=== PATIENT | male | born 1965 | race Caucasian/White ===

== ENCOUNTER 2019-01-03 15:27 | Emergency (ER) | payer OTHER ==
[2019-01-03 16:17] LABS: #Basophils 0.1 thou/uL (0.0-0.2); #Eosinphils 0.3 thou/uL (0.0-0.7); #Lymphocytes 2.1 thou/uL (1.20-3.40); #Monocytes 0.6 thou/uL (0.11-0.59); %Basophils 0.9 % (0.0-1.0); %Eosinophils 2.3 % (0.0-10.0); %Lymphocytes 19.2 % (21.0-51.0); %Monocytes 5.3 % (0.0-10.0); %Neutrophils 72.3 % (42.0-75.0); Hemoglobin 16.9 g/dL (14.0-18.0); Mean Corpuscular Hemoglobin 29.4 pg (27.0-31.0); Mean Corpuscular Volume 89.1 fL (78.0-98.0); Mean Platelet Volume 8.9 fL (7.4-10.4); Platelet Count 224 thou/uL (130-400); RBC Distribution Width 12.8 % (11.5-14.5); Red Blood Cell (RBC) Count 5.75 mill/uL (4.70-6.10); White Blood Cell (WBC) Count 11.1 thou/uL (4.8-10.8)
[2019-01-03 16:31] LABS: ALT (SGPT) 28 U/L (8-55); AST (SGOT) 20 U/L (5-34); Albumin 4.3 g/dL (3.5-5.0); Alkaline Phosphatase 98 U/L (40-150); Anion Gap 14 mmol/L (10-20); BUN (Urea Nitrogen) 16 mg/dL (8.4-25.7); Bilirubin, Total 0.4 mg/dL (0.2-1.2); Calc. Creatinine Clearance 0 mL/min (70-130); Calcium 9.4 mg/dL (7.8-10.44); Carbon Dioxide 27 mmol/L (22-29); Chloride 107 mmol/L (98-107); Estimated GFR-MDRD 68; Globulin 3.5 g/dL (2.4-3.5); Glucose 108 mg/dL (70-105); Potassium 4.1 mmol/L (3.5-5.1); Protein, Total 7.8 g/dL (6.0-8.3); Sodium 144 mmol/L (136-145)
--- NOTE | 2019-01-03 17:14 | RAD ---
PA AND LATERAL CHEST: 01/03/19 HISTORY: Elevated heart rate, heart palpitations. History of hypertension. Heart size and mediastinum are within normal limits. The lungs are clear of infiltrates. No significa nt bony findings. IMPRESSION: No active intrathoracic disease. POS: [facility]
== END 2019-01-03 18:51 | disposition short-term general hospital (02) ==
LOC: MADERS 15:27 → EEVIPCON 15:27 → MADERS 18:51
DX: I47.1 Supraventricular tachycardia (principal); I10 Essential (primary) hypertension; Z79.899 Other long term (current) drug therapy; Z79.82 Long term (current) use of aspirin
CPT/HCPCS: 36415; 71046; 80053; 83880; 84443; 84484; 85025; 93005; 94760